=== PATIENT | male | born 1960 | race American Indian/Alaskan Native ===

== ENCOUNTER 2018-09-21 06:31 | Day surgery (SDC) | payer OTHER ==
--- NOTE | 2018-09-20 10:49 | PCM.PREANE ---
Preanesthetic Assessment - Anesthesia/Transfusion/Family Hx Anesthesia History: Prior Anesthesia Without Reaction Family History of Anesthesia Reaction: No Transfusion History: No Prior Transfusion(s) Intubation History: Unknown - Review of Systems General: No Symptoms (Morbid Obesity) Pulmonary: No Symptoms (Smoker: 1 pack/month times 37 years.) Cardiovascular: No Symptoms (History of HTN) Gastrointestinal: No Symptoms Neurological: No Symptoms Other: Reports: None - Physical Assessment NPO Status Date: 09/20/18 NPO Status Time: 23:30 (water) Pulse: 82 O2 Sat by Pulse Oximetry: 95 Respiratory Rate: 16 Blood Pressure: 157/102 Temperature: 36.5 C Height: 1.73 m Weight: 122.016 kg ASA Class: 3 Mental Status: Alert & Oriented x3 Airway Class: Mallampati = 3 Dentition: Reports: Normal Dentition, Caries Thyro-Mental Finger Breadths: 3 Mouth Opening Finger Breadths: 3 ROM/Head Extension: Full Lungs: Clear to Auscultation, Normal Respiratory Effort Cardiovascular: Regular Rate, Regular Rhythm, No Murmurs - Allergies Allergies/Adverse Reactions: Allergies Allergy/AdvReac Type Severity Reaction Status Date / Time No Known Allergies Allergy Verified 09/20/18 12:55 - Anesthesia Plan Pre-Op Medication Ordered: None - Acknowledgements Anesthesia Type Planned: MAC Pt an Appropriate Candidate for the Planned Anesthesia: Yes Alternatives and Risks of Anesthesia Discussed w Pt/Guardian: Yes Pt/Guardian Understands and Agrees with Anesthesia Plan: Yes PreAnesthesia Questionnaire - Past Health History Medical/Surgical History: Denies Medical/Surgical History Cardiovascular History: Reports: High Cholesterol Dermatologic History: Reports: None - HOME MEDS Home Medications: Home Meds Naproxen Sodium [Aleve] 220 mg PO BID PRN 09/20/18 [History] - CURRENT (IN HOUSE) MEDS Current Meds: Current Medications Lactated Ringer's (Ringers, Lactated) 1,000 mls @ 125 mls/hr IV ASDIRECTED SG Lidocaine/Sodium Bicarbonate (Buffered Lidocaine 1% In Ns 8.4%) 0.25 ml IDERM ONETIME PRN PRN Reason: Prior to IV Start Sodium Chloride (Saline Flush) 10 ml FLUSH ASDIRECTED PRN PRN Reason: Keep Vein Open
[2018-09-21] MEDS ORDERED: Lidocaine 1%/Sod Bicarbonate in NS 8.4% 1 ML Syringe IDERM PRN (07:00)
[2018-09-21] MEDS ORDERED: Lactated Ringers 1,000 ML IV SCH (07:00)
[2018-09-21] MEDS ORDERED: Sodium Chloride 0.9% 10 ML Syringe FLUSH PRN (07:00)
[2018-09-21] MEDS ORDERED: Propofol 200 MG/20 ML SDV ONE ×2 (07:07→08:14)
[2018-09-21] MEDS ORDERED: fentaNYL 100 MCG/2 ML SDV ONE (07:07)
[2018-09-21] MEDS ORDERED: Lidocaine 1% 6 ML ONE (07:07)
[2018-09-21] MEDS ORDERED: Lactated Ringers 1,000 ML ONE (08:13)
--- NOTE | 2018-09-21 08:26 | PCM48HPAN ---
Post Anesthesia Note - EVALUATION WITHIN 48HRS OF ANESTHETIC Vital Signs in Normal Range: Yes Patient Participated in Evaluation: Yes Respiratory Function Stable: Yes Airway Patent: Yes Cardiovascular Function Stable: Yes Hydration Status Stable: Yes Pain Control Satisfactory: Yes Nausea and Vomiting Control Satisfactory: Yes Mental Status Recovered: Yes
[2018-09-21 08:30] VITALS: BP 137/92
--- NOTE | 2018-09-21 08:30 | PCM.OPNOTE ---
- General Post-Op/Procedure Note Date of Surgery/Procedure: 09/21/18 Operative Procedure(s): Colonoscopy with hot snare polypectomy and cold forceps biopsy and tattoo injection with ink Findings: 1. Ascending colon mass 2. Colon polyps x 8 3. Diverticulosis throughout entire colon Pre Op Diagnosis: Colon cancer screening Post-Op Diagnosis: 1. Ascending colon mass 2. Colon polyps x 8 3. Diverticulosis throughout entire colon Anesthesia Technique: MAC Primary Surgeon: Joe Andre Anesthesia Provider: Drea Boyce EBL in mLs: 5 Complications: None Condition: Good Free Text/Narrative:: After the patient gave verbal and written consent he was placed on blood pressure and pulse ox monitoring. He was given IV sedation which he tolerated well. THe olympus colonoscope was inserted per rectum and advanced to the cecum without difficulty. The ileocecal valve and appendiceal orfice were imaged documenting cecal intubation. The scope was slowly withdrawn and the mucosal surfaces were carefully imaged. The prep was good and the views were good. An ascending colon mass was noted just distal the ileocecal valve and was noted to involve approximately 1/3 circumference of the colon. It had a fungating friable appearance. The mass was biopsied with cold forceps. The edges were tattooed with jayce ink x 3. There was hemostasis. Multiple colon polyps were noted in the colon with a total of 8: 2 mm ascending polyp, 4 mm ascending polyp x 2, 5 mm transverse polyp, 1 cm sigmoid polyp, 8 mm sigmoid polyp and 5 mm sigmoid polyps x 2. These polyps were removed with hot snare polypectomy with good hemostasis at the end of the procedure. Moderate diverticulosis was noted throughout the entire colon. The scope was then retroflexed in the rectum and the details are above. THe patient tolerated the procedure well and there were no complications. THe patient left the endopscopy suite in good condition and there were no complications.
== END 2018-09-21 09:06 | disposition home or self-care (01) ==
LOC: JD.SDS 06:31
PROVIDERS: ATTEND Family Medicine
DX: Z12.11 Encounter for screening for malignant neoplasm of colon (principal); D12.2 Benign neoplasm of ascending colon; D12.5 Benign neoplasm of sigmoid colon; D12.3 Benign neoplasm of transverse colon; K57.30 Diverticulosis of large intestine without perforation or abscess without bleeding; E78.00 Pure hypercholesterolemia, unspecified; I10 Essential (primary) hypertension; F17.210 Nicotine dependence, cigarettes, uncomplicated; E66.01 Morbid (severe) obesity due to excess calories; Z68.41 Body mass index [BMI] 40.0-44.9, adult; Z79.1 Long term (current) use of non-steroidal anti-inflammatories (NSAID)
CPT/HCPCS: 45380; 45381; 45385; J2001; J2704; J3010; J7120; 00812